=== PATIENT | female | born 2000 | race African-American/Black ===

== ENCOUNTER 2020-06-26 06:09 | Inpatient (IN) ==
[2020-06-26] MEDS ORDERED: ONDANSETRON 4 MG/2 ML VIAL IV PRN (06:19)
[2020-06-26] MEDS ORDERED: MEPERIDINE 50 MG/1 ML VIAL IV PRN (06:19)
[2020-06-26] MEDS ORDERED: LACTATED RINGERS 500 ML IV PRN (06:19)
[2020-06-26] MEDS ORDERED: LACTATED RINGERS 1,000 ML IV SCH (06:30)
[2020-06-26 06:46] LABS: Basophils % 0.2 % (0.0-0.8); Eosinophils % 0.1 % (0.00-10.9); Hematocrit 27.9 VOL% (35.7-47.0); Hemoglobin 8.5 GM/DL (12.0-16.0); Immature Granulocytes % 1.4 %; Immature Granulocytes Absolute 0.15 #; Lymphocytes # 2.5 10*3/uL (1.4-4.0); Lymphocytes % 22.5 % (21.3-54.2); Mean Corpuscular HGB Conc 30.5 GM/DL (32-36); Mean Corpuscular Volume 77.3 FL (87-102); Monocytes % 8.3 % (1.7-12.7); Neutrophils % 67.5 % (38.7-73.9); Platelet Count 245 T/CUMM (130-400); Red Blood Count 3.61 MC/CUMM (3.8-5.5); Red Cell Distribution Width 17.5 % (9.3-17.3)
[2020-06-26 07:07] LABS: Alanine Aminotransferase 9 U/L (13-56); Albumin 2.5 G/DL (3.4-5.0); Alkaline Phosphatase 156 U/L (45-117); Aspartate Amino Transferase 18 U/L (0-37); Bilirubin,Total < 0.39 MG/DL (0.2-1.0); Blood Urea Nitrogen 6 MG/DL (7-18); Carbon Dioxide 21 MMOL/L (21-32); Estimated Glom Filtration Rate 199 ML/MIN; Glucose 83 MG/DL (74-106); Osmolality,Calculated 269.8 MOS/KG (273-304); Potassium 3.5 MMOL/L (3.5-5.1); Sodium 137 MMOL/L (136-145); Total Protein 7.6 G/DL (5.0-7.5)
[2020-06-26] MEDS ORDERED: OXYTOCIN/LR 20 UNIT/1,000 ML BAG IV SCH (07:20)
[2020-06-26] MEDS ORDERED: diphenhydrAMINE 50 MG/1 ML VIAL IV PRN ×2 (09:03)
[2020-06-26] MEDS ORDERED: ePHEDrine 50 MG/ML VIAL IV PRN (09:03)
[2020-06-26] MEDS ORDERED: LACTATED RINGERS 1,000 ML IV ONE (09:03)
[2020-06-26] MEDS ORDERED: CITRIC ACID/SODIUM CITRATE 30 ML UDCUP PO ONE (09:03)
[2020-06-26] MEDS ORDERED: FAMOTIDINE 20 MG/2 ML VIAL IV ONE ×2 (09:03→09:10)
[2020-06-26] MEDS ORDERED: PROMETHAZINE 25 MG/1 ML VIAL IM ONE (09:03)
[2020-06-26] MEDS ORDERED: NALOXONE 0.4 MG/ML VIAL IV PRN (09:03)
[2020-06-26] MEDS ORDERED: hydrOXYzine HCL 25 MG/1 ML VIAL IM PRN (09:03)
[2020-06-26] MEDS ORDERED: CITRIC ACID/SODIUM CITRATE 30 ML UDCUP ONE (09:10)
[2020-06-26] MEDS ORDERED: fentaNYL 2 MCG/ROPIV 0.2% EPID 100 ML EPIDURAL SCH (09:30)
[2020-06-26] MEDS ORDERED: TRANEXAMIC ACID 1,000 MG/10 ML VIAL ONE (15:31)
[2020-06-26] MEDS ORDERED: CARBOPROST TROMETHAMINE 250 MCG/ML AMP IM ONE (15:32)
[2020-06-26] MEDS ORDERED: METHYLERGONOVINE 0.2 MG/1 ML AMP ONE (15:32)
[2020-06-26 15:59] LABS: Cord Arterial Blood HCO3 22.6 MMOL/L
[2020-06-26 16:02] LABS: Cord Venous Blood HCO3 23.5 MMOL/L; Cord Venous Blood PCO2 37.5 MMHG
[2020-06-26 16:46] LABS: Bilirubin,Urine Negative (Negative); Blood, Urine Small mg/dL (Negative); Glucose,Urine (UA) Negative (Negative); Ketones,Urine 5 mg/dL (Negative); Mucus,Urine Occasional /LPF (Occasional); Nitrite,Urine Negative (Negative); Protein,Urine Negative; RBC,Urine 3 /HPF (0-4); Squamous Epithelial Cell,Urine Occasional /HPF (0-10); Urine Appearance CLEAR (Clear); Urine Color Yellow (Yellow); Urine Specific Gravity 1.013 (1.001-1.035); WBC,Urine 1 /HPF (0-6)
[2020-06-26] MEDS ORDERED: WITCH HAZEL PADS 100/JAR TOP PRN (17:02)
[2020-06-26] MEDS ORDERED: MEASLES/MUMPS/RUBELLA VACCINE 0.5 ML VIAL SUBCUT ONE (17:02)
[2020-06-26] MEDS ORDERED: ACETAMINOPHEN 325 MG TABLET PO PRN (17:02)
[2020-06-26] MEDS ORDERED: oxyCODONE/ACETAMINOPHEN 5-325 MG TABLET PO PRN (17:02)
[2020-06-26] MEDS ORDERED: HYDROCORTISONE 2.5% RECTAL CREAM 30 GM TUBE TOP PRN (17:02)
[2020-06-26] MEDS ORDERED: DIPH/TET/ACEL PERT BOOSTER VACCINE 0.5 ML VIAL IM ONE (17:02)
[2020-06-26] MEDS ORDERED: LANOLIN 50% CREAM 0.3 OZ TUBE TOP PRN (17:02)
[2020-06-26] MEDS ORDERED: BENZOCAINE 20%/MENTHOL 0.5% SPRAY 56 GM CAN TOP PRN (17:02)
[2020-06-26] MEDS ORDERED: RHO(D) IMMUNE GLOBULIN 300 MCG SYRINGE IM ONE (17:02)
[2020-06-26] MEDS ORDERED: OXYTOCIN/LR 20 UNIT/1,000 ML BAG IV ONE (17:02)
[2020-06-26] MEDS ORDERED: BISACODYL 10 MG SUPP RECTAL PRN (17:02)
[2020-06-26] MEDS: IBUPROFEN 800 MG TABLET PO PRN (17:34)
[2020-06-26 17:40] LABS: Barbiturates Screen,Urine Negative (Negative); Benzodiazepines Screen,Urine Negative (Negative); Cannabinoid Screen,Urine Positive (Negative); Opiate Screen,Urine Negative (Negative); Phencyclidine Screen,Urine Negative (Negative)
[2020-06-26] MEDS: oxyCODONE/ACETAMINOPHEN 5-325 MG TABLET PO PRN (19:53)
[2020-06-26] MEDS: DOCUSATE SODIUM 100 MG CAPSULE PO SCH (21:07)
[2020-06-27] MEDS: IBUPROFEN 800 MG TABLET PO PRN ×2 (01:33→11:19)
[2020-06-27 06:34] LABS: Basophils % 0.2 % (0.0-0.8); Eosinophils % 0.4 % (0.00-10.9); Lymphocytes # 2.1 10*3/uL (1.4-4.0); Mean Corpuscular HGB Conc 29.5 GM/DL (32-36); Mean Corpuscular Volume 77.9 FL (87-102); Mean Platelet Volume 11.5 FL (9.6-12.0); Monocytes % 9.2 % (1.7-12.7); Neutrophils % 69.2 % (38.7-73.9); Platelet Count 196 T/CUMM (130-400); Red Cell Distribution Width 17.4 % (9.3-17.3); White Blood Count 10.5 T/CUMM (4-12)
[2020-06-27 06:39] LABS: Hematocrit 27.1 VOL% (35.7-47.0); Red Blood Count 3.48 MC/CUMM (3.8-5.5)
[2020-06-27] MEDS: FERROUS SULFATE 325 MG TABLET PO SCH ×2 (09:11→21:01)
[2020-06-27] MEDS: DOCUSATE SODIUM 100 MG CAPSULE PO SCH ×2 (09:11→21:02)
[2020-06-27] MEDS: oxyCODONE/ACETAMINOPHEN 5-325 MG TABLET PO PRN ×2 (11:18→21:47)
[2020-06-27] MEDS ORDERED: RHO(D) IMMUNE GLOBULIN 300 MCG SYRINGE IM ONE (11:37)
[2020-06-28] MEDS: IBUPROFEN 800 MG TABLET PO PRN (02:47)
[2020-06-28 07:39] VITALS: BP 118/63
[2020-06-28] MEDS: DOCUSATE SODIUM 100 MG CAPSULE PO SCH (08:40)
[2020-06-28] MEDS: FERROUS SULFATE 325 MG TABLET PO SCH (08:40)
[2020-06-28] MEDS: oxyCODONE/ACETAMINOPHEN 5-325 MG TABLET PO PRN (09:29)
== END 2020-06-28 11:40 | disposition home or self-care (01) | DRG 560 ==
LOC: N.LD 06:09 → N.OB 18:27
PROVIDERS: ADMIT Obstetrics & Gynecology; ATTEND Obstetrics & Gynecology